=== PATIENT | female | born 2000 | race Caucasian/White ===

== ENCOUNTER 2023-03-04 19:44 | Emergency (ER) | payer BC ==
[2023-03-04 20:04] VITALS: BP 134/84; PULSE 80; RESP 18; TEMP 98.2; BMI 25.0
== END 2023-03-04 23:21 | disposition home or self-care (01) ==
LOC: JER 19:44
DX: R07.89 Other chest pain (principal)
CPT/HCPCS: 85379; 93005; 93010; 99284-25